=== PATIENT | female | born 1955 | race Two or more races ===

== ENCOUNTER 2016-12-05 13:20 | Emergency (ER) | payer OTHER ==
[~2016-12-05] VITALS: Ht 154.9 cm; Wt 69.0 kg
[2016-12-05] MEDS ORDERED: KETOROLAC TROMETHAMINE 60 MG/2 ML VIAL IM ONE (15:00)
[2016-12-05 17:13] VITALS: BP 130/80
== END 2016-12-05 17:16 | disposition home or self-care (01) ==
LOC: EMS 13:23
DX: S13.4XXA Sprain of ligaments of cervical spine, initial encounter (principal); S80.02XA Contusion of left knee, initial encounter; V43.52XA Car driver injured in collision with other type car in traffic accident, initial encounter; Y93.89 Activity, other specified; Y92.488 Other paved roadways as the place of occurrence of the external cause; Y99.8 Other external cause status
CPT/HCPCS: 29530; 72040; 73562; 96372; 99284; J1885

== ENCOUNTER 2016-12-20 17:54 | Emergency (ER) | payer OTHER ==
[~2016-12-20] VITALS: Ht 170.2 cm; Wt 68.2 kg
[2016-12-20] MEDS ORDERED: KETOROLAC TROMETHAMINE 60 MG/2 ML VIAL IM ONE (20:00)
[2016-12-20] MEDS ORDERED: METHOCARBAMOL 500 MG TABLET PO ONE (20:00)
[2016-12-20 23:07] VITALS: BP 137/87
== END 2016-12-20 23:00 | disposition home or self-care (01) ==
LOC: EMS 17:56
DX: S16.1XXA Strain of muscle, fascia and tendon at neck level, initial encounter (principal); E78.00 Pure hypercholesterolemia, unspecified; V89.2XXA Person injured in unspecified motor-vehicle accident, traffic, initial encounter; Y93.89 Activity, other specified; Y92.89 Other specified places as the place of occurrence of the external cause; Y99.8 Other external cause status
CPT/HCPCS: 72125; 96372; 99284; J1885